=== PATIENT | male | born 1990 | race Caucasian/White ===

== ENCOUNTER 2023-12-04 01:18 | Emergency (ER) | payer BC, OTHER ==
[2023-12-04 01:57] VITALS: TEMP 97.1
--- NOTE | 2023-12-04 02:11 | ERPHSYRPT ---
- History of Present Illness Time Seen by Provider: 12/04/23 02:03 Historian: patient Exam Limitations: no limitations Patient Subjective Stated Complaint: pt states he has been having pain below his sternum radiating thru to his back for approx last 2 hours. has been vomiting since and unable to keep anything down Triage Nursing Assessment: pt alert and oriented, answers questions approp. pt ambulates into room with steady gait noted. respirations nonlabored. skin warm and dry. abd soft, nontender to light palpation. bowel sounds hypo. Physician History: Pt states he has been having constant sharp lower mid chest pain radiating to the back with vomiting x3 for the past 2 hours; denies fever, diarrhea, abdominal pain, shortness of air. Pt states his pain is 9/10 in severity. Aspirin Treatment Today: no aspirin today Allergies/Adverse Reactions: No Known Drug Allergies Allergy (Verified 12/04/23 01:57) Hx Tetanus, Diphtheria Vaccination/Date Given: Yes Hx Influenza Vaccination/Date Given: No Hx Pneumococcal Vaccination/Date Given: No Immunizations Up to Date: Yes Travel Risk - International Travel Have you traveled outside of the country in past 3 weeks: No - Emerging Infectious Disease Are you exhibiting symptoms associated with any current EIDs: No - Review of Systems Constitutional: No Fever Respiratory: No Dyspnea Cardiac: Chest Pain Abdominal/Gastrointestinal: Vomiting, No Abdominal Pain, No Diarrhea Neurological: No Headache - Past Medical History Pertinent Past Medical History: No - Past Surgical History Past Surgical History: No - Social History Smoking Status: Current every day smoker How long have you smoked: 10yrs Exposure to second hand smoke: Yes Drug Use: none - Social Determinants of Health Will the patient participate in the screening: Declined to provide - Nursing Vital Signs Nursing Vital Signs: Initial Vital Signs Temperature 97.1 F 12/04/23 01:47 Pulse Rate 65 12/04/23 01:47 Respiratory Rate 18 12/04/23 01:47 Blood Pressure 178/114 12/04/23 01:47 O2 Sat by Pulse Oximetry 99 12/04/23 01:47 Pain Scale Pain Intensity 6 - Physical Exam General Appearance: alert Eye Exam: PERRL/EOMI Ears, Nose, Throat Exam: TMs normal, pharyngeal erythema Neck Exam: normal inspection Respiratory Exam: lungs clear Cardiovascular Exam: normal heart sounds Gastrointestinal/Abdomen Exam: normal bowel sounds Back Exam: normal inspection Extremity Exam: No pedal edema Neurologic Exam: alert, cooperative Skin Exam: warm, dry SpO2 Interpretation: normal SpO2: 99 O2 Delivery: Room Air - Course Nursing assessment & vital signs reviewed: Yes EKG Interpreted by Me: RATE (59), Sinus Rhythm, Right Windthorst Deviation, Other (QTc = 431) - CT Exams Chest CT Interpretation: Tele-radiologist Report (Few subpleural atelectatic bands are noted in bilateral lower lobes. No other acute lung parenchymal lesion is seen.) Ordered Tests: Active Orders 24 hr Category Date Time Status EKG-ER Only STAT Care 12/04/23 02:21 Active IV Insertion STAT Care 12/04/23 02:21 Active CHEST WITH CONTRAST [CT] Stat Exams 12/04/23 02:23 Completed AMYLASE Stat Lab 12/04/23 02:44 Completed CBC W DIFF Stat Lab 12/04/23 02:44 Completed CMP Stat Lab 12/04/23 02:44 Completed LIPASE Stat Lab 12/04/23 02:44 Completed MAGNESIUM Stat Lab 12/04/23 02:44 Completed TROPONIN Q4H Lab 12/04/23 02:44 Completed TROPONIN Q4H Lab 12/04/23 06:30 Ordered TROPONIN Q4H Lab 12/04/23 10:30 Ordered UA W/RFX UR CULTURE Stat Lab 12/04/23 03:50 Completed Medication Summary Generic Name Dose Route Start Last Admin Trade Name Freq PRN Reason Stop Dose Admin Morphine Sulfate 4 mg 12/04/23 04:40 Morphine Sulfate 4 Mg/Ml Injection IV 12/04/23 04:41 STAT ONE Discontinued Medications Generic Name Dose Route Start Last Admin Trade Name Freq PRN Reason Stop Dose Admin Sodium Chloride 1,000 mls @ 999 mls/hr 12/04/23 02:21 12/04/23 02:38 Sodium Chloride 0.9% 1000 Ml IV 12/04/23 03:21 999 mls/hr .Q1H1M STA Administration Sodium Chloride Confirm 12/04/23 02:35 Sodium Chloride 0.9% 1000 Ml Administered 12/04/23 02:36 Dose 1,000 mls @ ud .ROUTE .STK-MED ONE Morphine Sulfate 4 mg 12/04/23 02:22 12/04/23 02:38 Morphine Sulfate 4 Mg/Ml Injection IV 12/04/23 02:23 4 mg STAT ONE Administration Morphine Sulfate Confirm 12/04/23 02:35 Morphine Sulfate 4 Mg/Ml Injection Administered 12/04/23 02:36 Dose 4 mg .ROUTE .STK-MED ONE Ondansetron HCl 4 mg 12/04/23 02:22 12/04/23 02:38 Ondansetron Hcl 4 Mg/2 Ml Vial IV 12/04/23 02:23 4 mg STAT ONE Administration Ondansetron HCl Confirm 12/04/23 02:34 Ondansetron Hcl 4 Mg/2 Ml Vial Administered 12/04/23 02:35 Dose 4 mg .ROUTE .STK-MED ONE Lab/Rad Data: Laboratory Result Diagrams 12/04/23 02:44 12/04/23 02:44 Laboratory Results 12/04/23 12/04/23 12/04/23 Range/Units 03:50 02:44 02:44 WBC (4.23-9.07) x10^3/uL RBC (4.63-6.08) x10^6/uL Hgb (13.7-17.5) g/dL Hct (40.1-51.0) % MCV (79.0-92.2) fL MCH (25.7-32.2) pg MCHC (32.3-36.5) g/dL RDW (11.6-14.4) % Plt Count (163-337) x10^3/uL MPV (9.4-12.4) fL Gran % (34.0-67.9) % Immature Gran % (Auto) (0.001-0.429) % Nucleat RBC Rel Count (0.00-0.2) % Eos # (Auto) (0.04-0.54) x10^3/uL Immature Gran # (Auto) (0.001-0.031) x10^3u/L Absolute Lymphs (auto) (1.32-3.57) x10^3/uL Absolute Monos (auto) (0.30-0.82) x10^3/uL Absolute Nucleated RBC (0.00-0.012) x10^3u/L Lymphocytes % (21.8-53.1) % Monocytes % (5.3-12.2) % Eosinophils % (0.8-7.0) % Basophils % (0.2-1.2) % Absolute Granulocytes (1.78-5.38) x10^3/uL Basophils # (0.01-0.08) x10^3/uL Sodium (135-145) mmol/L Potassium (3.5-5.1) mmol/L Chloride (98-107) mmol/L Carbon Dioxide (22-30) mmol/L Anion Gap (5-15) MEQ/L BUN (9-20) mg/dL Creatinine (0.66-1.25) mg/dL Estimated GFR ML/MIN Glucose (74-106) mg/dL Calcium (8.4-10.2) mg/dL Magnesium (1.6-2.3) mg/dL Total Bilirubin (0.2-1.3) mg/dL AST (17-59) U/L ALT (0-50) U/L Alkaline Phosphatase (38-126) U/L Troponin I (0.000-0.033) ng/mL Serum Total Protein (6.3-8.2) g/dL Albumin (3.5-5.0) g/dL Amylase (30-110) U/L Lipase (23-300) U/L Urine Color Yellow (Yellow) Urine Appearance Clear (Clear) Urine pH 7.5 (4.6-8.0) Ur Specific Williamson >=1.030 A (1.005-1.030) Urine Protein Negative (Negative) Urine Glucose (UA) 100 A (Negative) mg/dL Urine Ketones Trace A (Negative) Urine Blood Negative (Negative) Urine Nitrite Negative (Negative) Urine Bilirubin Negative (Negative) Urine Urobilinogen 0.2 (0.2) mg/dL Ur Leukocyte Esterase Negative (Negative) U Hyaline Cast (Auto) NONE SEEN (0-2) /LPF Urine Microscopic RBC 0-2 (0-5) /HPF Urine Microscopic WBC 0-2 (0-5) /HPF Ur Epithelial Cells None Seen (None Seen) /HPF Urine Bacteria None Seen (None Seen) /HPF Urine Culture Reflexed NO (NO) Influenza Type A Ag NEGATIVE (NEGATIVE) Influenza Type B Ag NEGATIVE (NEGATIVE) RSV (PCR) NEGATIVE (NEGATIVE) SARS-CoV-2 (PCR) NEGATIVE (NEGATIVE) Group A Strep Antibody NOT DETECTED (NEGATIVE) 12/04/23 12/04/23 12/04/23 Range/Units 02:44 02:44 02:44 WBC (4.23-9.07) x10^3/uL RBC (4.63-6.08) x10^6/uL Hgb (13.7-17.5) g/dL Hct (40.1-51.0) % MCV (79.0-92.2) fL MCH (25.7-32.2) pg MCHC (32.3-36.5) g/dL RDW (11.6-14.4) % Plt Count (163-337) x10^3/uL MPV (9.4-12.4) fL Gran % (34.0-67.9) % Immature Gran % (Auto) (0.001-0.429) % Nucleat RBC Rel Count (0.00-0.2) % Eos # (Auto) (0.04-0.54) x10^3/uL Immature Gran # (Auto) (0.001-0.031) x10^3u/L Absolute Lymphs (auto) (1.32-3.57) x10^3/uL Absolute Monos (auto) (0.30-0.82) x10^3/uL Absolute Nucleated RBC (0.00-0.012) x10^3u/L Lymphocytes % (21.8-53.1) % Monocytes % (5.3-12.2) % Eosinophils % (0.8-7.0) % Basophils % (0.2-1.2) % Absolute Granulocytes (1.78-5.38) x10^3/uL Basophils # (0.01-0.08) x10^3/uL Sodium 139 (135-145) mmol/L Potassium 3.9 (3.5-5.1) mmol/L Chloride 102 (98-107) mmol/L Carbon Dioxide 26 (22-30) mmol/L Anion Gap 15.1 H (5-15) MEQ/L BUN 13 (9-20) mg/dL Creatinine 0.99 (0.66-1.25) mg/dL Estimated GFR 103.2 ML/MIN Glucose 144 H (74-106) mg/dL Calcium 9.6 (8.4-10.2) mg/dL Magnesium 2.1 (1.6-2.3) mg/dL Total Bilirubin 0.30 (0.2-1.3) mg/dL AST 32 (17-59) U/L ALT 42 (0-50) U/L Alkaline Phosphatase 87 (38-126) U/L Troponin I < 0.012 (0.000-0.033) ng/mL Serum Total Protein 8.0 (6.3-8.2) g/dL Albumin 4.8 (3.5-5.0) g/dL Amylase 82 (30-110) U/L Lipase 47 (23-300) U/L Urine Color (Yellow) Urine Appearance (Clear) Urine pH (4.6-8.0) Ur Specific Williamson (1.005-1.030) Urine Protein (Negative) Urine Glucose (UA) (Negative) mg/dL Urine Ketones (Negative) Urine Blood (Negative) Urine Nitrite (Negative) Urine Bilirubin (Negative) Urine Urobilinogen (0.2) mg/dL Ur Leukocyte Esterase (Negative) U Hyaline Cast (Auto) (0-2) /LPF Urine Microscopic RBC (0-5) /HPF Urine Microscopic WBC (0-5) /HPF Ur Epithelial Cells (None Seen) /HPF Urine Bacteria (None Seen) /HPF Urine Culture Reflexed (NO) Influenza Type A Ag (NEGATIVE) Influenza Type B Ag (NEGATIVE) RSV (PCR) (NEGATIVE) SARS-CoV-2 (PCR) (NEGATIVE) Group A Strep Antibody (NEGATIVE) 12/04/23 Range/Units 02:44 WBC 19.0 H (4.23-9.07) x10^3/uL RBC 5.35 (4.63-6.08) x10^6/uL Hgb 15.8 (13.7-17.5) g/dL Hct 47.4 (40.1-51.0) % MCV 88.6 (79.0-92.2) fL MCH 29.5 (25.7-32.2) pg MCHC 33.3 (32.3-36.5) g/dL RDW 12.4 (11.6-14.4) % Plt Count 332 (163-337) x10^3/uL MPV 9.2 L (9.4-12.4) fL Gran % 86.7 H (34.0-67.9) % Immature Gran % (Auto) 0.4 (0.001-0.429) % Nucleat RBC Rel Count 0.0 (0.00-0.2) % Eos # (Auto) 0.06 (0.04-0.54) x10^3/uL Immature Gran # (Auto) 0.07 H (0.001-0.031) x10^3u/L Absolute Lymphs (auto) 1.55 (1.32-3.57) x10^3/uL Absolute Monos (auto) 0.79 (0.30-0.82) x10^3/uL Absolute Nucleated RBC 0.00 (0.00-0.012) x10^3u/L Lymphocytes % 8.1 L (21.8-53.1) % Monocytes % 4.1 L (5.3-12.2) % Eosinophils % 0.3 L (0.8-7.0) % Basophils % 0.4 (0.2-1.2) % Absolute Granulocytes 16.50 H (1.78-5.38) x10^3/uL Basophils # 0.07 (0.01-0.08) x10^3/uL Sodium (135-145) mmol/L Potassium (3.5-5.1) mmol/L Chloride (98-107) mmol/L Carbon Dioxide (22-30) mmol/L Anion Gap (5-15) MEQ/L BUN (9-20) mg/dL Creatinine (0.66-1.25) mg/dL Estimated GFR ML/MIN Glucose (74-106) mg/dL Calcium (8.4-10.2) mg/dL Magnesium (1.6-2.3) mg/dL Total Bilirubin (0.2-1.3) mg/dL AST (17-59) U/L ALT (0-50) U/L Alkaline Phosphatase (38-126) U/L Troponin I (0.000-0.033) ng/mL Serum Total Protein (6.3-8.2) g/dL Albumin (3.5-5.0) g/dL Amylase (30-110) U/L Lipase (23-300) U/L Urine Color (Yellow) Urine Appearance (Clear) Urine pH (4.6-8.0) Ur Specific Williamson (1.005-1.030) Urine Protein (Negative) Urine Glucose (UA) (Negative) mg/dL Urine Ketones (Negative) Urine Blood (Negative) Urine Nitrite (Negative) Urine Bilirubin (Negative) Urine Urobilinogen (0.2) mg/dL Ur Leukocyte Esterase (Negative) U Hyaline Cast (Auto) (0-2) /LPF Urine Microscopic RBC (0-5) /HPF Urine Microscopic WBC (0-5) /HPF Ur Epithelial Cells (None Seen) /HPF Urine Bacteria (None Seen) /HPF Urine Culture Reflexed (NO) Influenza Type A Ag (NEGATIVE) Influenza Type B Ag (NEGATIVE) RSV (PCR) (NEGATIVE) SARS-CoV-2 (PCR) (NEGATIVE) Group A Strep Antibody (NEGATIVE) - Progress Progress: improved Counseled pt/family regarding: lab results, diagnosis, need for follow-up, rad results Medical Desision Making - Diagnostic Testing Diagnostic test were ordered, analyzed, and reviewed by me: Yes Radiological Interpretation: Teleradiologist Report - Departure Departure Disposition: Home Clinical Impression: Chest pain, Vomiting Condition: Stable Critical Care Time: No Referrals: DOCTOR,NO FAMILY [Primary Care Provider] - Follow up/PCP as directed Instructions: Chest Pain, Adult ED, Nausea and Vomiting, Adult ED Additional Instructions: Follow up with private doctor today. Return to [facility] for an outpatient gallbladder ultrasound. Forms: Work/School Release Form Prescriptions: Ondansetron ODT 4 MG [Zofran Odt 4 mg] 4 mg PO Q6HPRN PRN #30 tab PRN Reason: Nausea
[2023-12-04] MEDS ORDERED: Zofran 4 MG/2 ML VIAL ONE (02:34)
[2023-12-04] MEDS ORDERED: Sodium Chloride 0.9% 1000 ML 1,000 ML ONE (02:35)
[2023-12-04] MEDS ORDERED: MORPHINE SULFATE 4 MG INJ ONE ×2 (02:35→04:54)
[2023-12-04] MEDS: Zofran 4 MG/2 ML VIAL IV ONE (02:38)
[2023-12-04] MEDS: Sodium Chloride 0.9% 1000 ML 1,000 ML IV STA (02:38)
[2023-12-04] MEDS: MORPHINE SULFATE 4 MG INJ IV ONE ×2 (02:38→05:00)
[2023-12-04 02:47] LABS: BASOPHIL % 0.4 % (0.2-1.2); Basophil (Absolute #) 0.07 x10^3/uL (0.01-0.08); Eosinophil % 0.3 % (0.8-7.0); Eosinophil (Absolute #) 0.06 x10^3/uL (0.04-0.54); Hematocrit 47.4 % (40.1-51.0); Hemoglobin 15.8 g/dL (13.7-17.5); IMMATURE GRAN # 0.07 x10^3u/L (0.001-0.031); IMMATURE GRAN % 0.4 % (0.001-0.429); Lymphocyte (Absolute #) 1.55 x10^3/uL (1.32-3.57); Lymphocytes % 8.1 % (21.8-53.1); Mean Cell Volume 88.6 fL (79.0-92.2); Mean Corpuscular Hemoglobin 29.5 pg (25.7-32.2); Mean Corpuscular Hgb Concent. 33.3 g/dL (32.3-36.5); Mean Platelet Volume 9.2 fL (9.4-12.4); Monocyte (Absolute #) 0.79 x10^3/uL (0.30-0.82); Monocytes % 4.1 % (5.3-12.2); Neutrophil % 86.7 % (34.0-67.9); Platelet Count 332 x10^3/uL (163-337); Red Blood Count 5.35 x10^6/uL (4.63-6.08); Red Cell Distribution Width 12.4 % (11.6-14.4)
[2023-12-04 02:58] LABS: ALBUMIN 4.8 g/dL (3.5-5.0); ANION GAP 15.1 MEQ/L (5-15); BILIRUBIN,TOTAL 0.3 mg/dL (0.2-1.3); Calcium 9.6 mg/dL (8.4-10.2); Creatinine 1 0.99 mg/dL (0.66-1.25); EST GLOMERULAR FILTRATION RATE 103.2 ML/MIN; Potassium 3.9 mmol/L (3.5-5.1)
[2023-12-04 03:27] LABS: INFLUENZA A NEGATIVE (NEGATIVE); INFLUENZA B NEGATIVE (NEGATIVE); RESPIRATORY SYNCTIAL VIRUS NEGATIVE (NEGATIVE); SARS-CoV-2 Xpert Express NEGATIVE (NEGATIVE)
--- NOTE | 2023-12-04 04:00 | XRAY ---
CLINICAL HISTORY: chest pain COMPARISON: None. TECHNIQUE: Contiguous axial images were obtained from the neck base through the upper abdomen following intravenous administration of contrast material. If IV contrast material had not been administered, the likelihood of detecting abnormalities relevant to the patient's condition would have been substantially decreased. In addition, sagittal and coronal reconstructions were performed. CT scan was performed according to ALARA (as low as reasonably achievable). FINDINGS: Few subpleural atelectatic bands are noted in bilateral lower lobes The lungs are clear, with no focal areas of consolidation. No pulmonary nodules are seen. The central airways are patent. There are no pleural effusions. No pneumothorax is seen. No axillary, hilar, or mediastinal adenopathy is identified. The visualized thyroid is unremarkable. The heart, aorta, and pulmonary arteries are of normal size and configuration. No pericardial effusion is identified. Imaged portions of the upper abdomen are unremarkable. No aggressive appearing osseous lesions are identified. IMPRESSION: Few subpleural atelectatic bands are noted in bilateral lower lobes No other acute lung parenchymal lesion is seen. Electronically Signed by: Blake Gunter MD. (12/04/2023 03:56:49 EDT)
[2023-12-04 04:16] LABS: Bacteria None Seen /HPF (None Seen); Bilirubin Negative (Negative); Blood Negative (Negative); Epithelial Cells None Seen /HPF (None Seen); Glucose, Urine 100 mg/dL (Negative); Hyaline Casts NONE SEEN /LPF (0-2); Ketones Trace (Negative); Leukocyte Esterase Negative (Negative); Nitrite Negative (Negative); Ph 7.5 (4.6-8.0); Protein,Urine Dip Negative (Negative); RBC 0-2 /HPF (0-5); Specific Gravity >=1.030 (1.005-1.030); Urobilinogen 0.2 mg/dL (0.2); WBC 0-2 /HPF (0-5)
[2023-12-04 04:17] LABS: ADD URINE CULTURE? NO (NO); Appearance Clear (Clear)
[2023-12-04 05:07] VITALS: BP 150/92; PULSE 68; RESP 14; O2SAT 95
== END 2023-12-04 05:15 | disposition home or self-care (01) ==
LOC: ED 01:18
DX: R07.9 Chest pain, unspecified (principal); R11.2 Nausea with vomiting, unspecified; R10.13 Epigastric pain; Z72.0 Tobacco use
CPT/HCPCS: 0241U; 36000; 36415; 71260; 80053; 81001; 82150; 83690; 83735; 84484; 85025; 87651; 93005; 96374; 96375; 99284; J2270; J2405